=== PATIENT | female | born 1985 | race Caucasian/White ===

== ENCOUNTER 2022-11-28 05:05 | Inpatient (IN) | payer OTHER, SELFPAY ==
[2022-11-28] MEDS ORDERED: Misoprostol 200 MCG TAB PR PRN (05:28)
[2022-11-28] MEDS ORDERED: Carboprost 250 MCG/ML AMP IM PRN (05:28)
[2022-11-28] MEDS ORDERED: Ondansetron PF 4 MG/2 ML Vial IVP PRN ×3 (05:28→12:58)
[2022-11-28] MEDS ORDERED: Promethazine HCl 25 MG/ML VIAL IM PRN ×3 (05:28→12:58)
[2022-11-28] MEDS ORDERED: Tranexamic Acid 1,000 MG/10 ML VIAL IVP PRN (05:28)
[2022-11-28] MEDS ORDERED: hydrALAZINE 20 MG/ML VIAL SLOW IVP PRN ×2 (05:28→12:58)
[2022-11-28] MEDS ORDERED: Methylergonovine 0.2 MG/ML VIAL IM PRN ×2 (05:28→12:58)
[2022-11-28] MEDS ORDERED: NS w/ Oxytocin 30 units 500 ML IV SCH ×2 (05:30→12:58)
[2022-11-28] MEDS ORDERED: Lactated Ringer's 1,000 ML IV SCH (05:30)
[2022-11-28 05:33] VITALS: BMI 27.4
[2022-11-28] MEDS ORDERED: fentaNYL/Ropivacaine Epidural 100 ML ONE (05:41)
[2022-11-28] MEDS ORDERED: Lidocaine 1% (PF) 30 ML VIAL ONE (05:45)
[2022-11-28] MEDS ORDERED: Acetaminophen 325 MG TAB PO PRN (06:13)
[2022-11-28] MEDS ORDERED: Moisturizing Cream (Eucerin) 113 GM JAR TOP PRN (06:13)
[2022-11-28] MEDS ORDERED: Lactated Ringer's 500 ML IV PRN (06:13)
[2022-11-28] MEDS ORDERED: ePHEDrine Sulfate 50 MG/10 ML VIAL SLOW IVP PRN (06:13)
[2022-11-28] MEDS ORDERED: Naloxone HCl 0.4 mg/ml Vial IVP PRN ×2 (06:13)
[2022-11-28] MEDS ORDERED: diphenhydrAMINE 50 MG/ML VIAL IVP PRN (06:13)
[2022-11-28] MEDS ORDERED: Communication Order-Pharmacy FS SCH (06:15)
[2022-11-28] MEDS ORDERED: fentaNYL 2 mcg/Ropivacaine 0.2% Epidural 100 ML CADD EPIDURAL SCH (06:15)
[2022-11-28 06:51] LABS: Hemoglobin 13.3 g/dL (12.0-15.5); Mean Corpuscular HGB CONC 33.6 g/dL (32.0-36.0); Mean Corpuscular Hemoglobin 29.9 pg (27.0-33.0); Mean Platelet Volume 10.2 fl (7.4-10.4); Platelet Count 322 10x3/uL (150-450); RBC Distribution Width 13.5 % (11.5-14.5); Red Blood Cell (RBC) Count 4.45 10x6/uL (3.90-5.03); White Blood Cell (WBC) Count 14.5 10x3/uL (3.5-10.5)
[2022-11-28 07:33] LABS: Syphilis Antibody Nonreactive (Nonreactive); Syphilis Antibody Index 0.05 S/CO (<1.00 Non-Reactive)
[2022-11-28 07:34] LABS: HBSAg Index 0.18 S/CO (0-0.99); Hep B Surf Ag - L&D Non-Reactive S/CO (NonReactive)
[2022-11-28] MEDS ORDERED: Misoprostol 200 MCG TAB ONE (09:20)
[2022-11-28] MEDS ORDERED: Bupivacaine 0.25% HCL 30 ML VIAL ONE (12:00)
[2022-11-28] MEDS ORDERED: HYDROcodone/Acetaminophen 5/325 mg Tablet PO PRN (12:58)
[2022-11-28] MEDS ORDERED: Lanolin Ointment 7 GM TUBE TOP PRN (12:58)
[2022-11-28] MEDS ORDERED: Misoprostol 200 MCG TAB VAG PRN (12:58)
[2022-11-28] MEDS ORDERED: Zolpidem Tartrate 5 MG TAB PO PRN (12:58)
[2022-11-28] MEDS ORDERED: Milk Of Magnesia 30 ML UDCUP PO PRN (12:58)
[2022-11-28] MEDS ORDERED: Preparation H Ointment 28 GM TUBE PR PRN (12:58)
[2022-11-28] MEDS ORDERED: Boostrix 0.5 ML (Tdap) VIAL (>/=7 yrs of age) IM ONE (12:58)
[2022-11-28] MEDS ORDERED: Measles/Mumps/Rubella 10 MCG/0.5 ML VIAL SC ONE (12:58)
[2022-11-28] MEDS ORDERED: diphenhydrAMINE 25 MG CAP PO PRN (12:58)
[2022-11-28] MEDS ORDERED: Bisacodyl 10 MG SUPP PR PRN (12:58)
[2022-11-28] MEDS ORDERED: Varicella virus, LIVE 0.5 ML VIAL SC ONE (12:58)
[2022-11-28] MEDS: Ibuprofen 800 MG TAB PO SCH ×2 (13:50→21:19)
[2022-11-28] MEDS ORDERED: Prenatal Vitamin 1 TAB PO SCH (14:00)
[2022-11-28] MEDS ORDERED: Docusate 100 MG CAP PO SCH (14:00)
[2022-11-28] MEDS: Ferrous Sulfate 325 MG TAB PO SCH (17:01)
[2022-11-28] MEDS: Benzocaine-Menthol 82.5 ML CAN TOP PRN (17:30)
[2022-11-28] MEDS: HYDROcodone/Acetaminophen 5/325 mg Tablet PO PRN (21:19)
[2022-11-28] MEDS: Docusate 100 MG CAP PO SCH (21:19)
[2022-11-29 04:37] LABS: Hemoglobin 10.7 g/dL (12.0-15.5); Red Blood Cell (RBC) Count 3.58 10x6/uL (3.90-5.03); White Blood Cell (WBC) Count 17.8 10x3/uL (3.5-10.5)
[2022-11-29 04:38] LABS: Mean Corpuscular HGB CONC 33.4 g/dL (32.0-36.0); Mean Corpuscular Hemoglobin 29.9 pg (27.0-33.0); Mean Corpuscular Volume 89.4 fl (81.6-98.3); Mean Platelet Volume 10.4 fl (7.4-10.4); Platelet Count 252 10x3/uL (150-450); RBC Distribution Width 13.5 % (11.5-14.5)
[2022-11-29] MEDS: Ibuprofen 800 MG TAB PO SCH (05:36)
[2022-11-29] MEDS: Ferrous Sulfate 325 MG TAB PO SCH (07:20)
[2022-11-29 07:57] VITALS: BP 122/57; TEMP 98
[2022-11-29] MEDS: Docusate 100 MG CAP PO SCH (08:07)
[2022-11-29] MEDS ORDERED: Prenatal Vitamin 1 TAB PO SCH (09:00)
[2022-11-29] MEDS: HYDROcodone/Acetaminophen 5/325 mg Tablet PO PRN (10:07)
[2022-11-29] MEDS: Benzocaine-Menthol 82.5 ML CAN TOP PRN (12:55)
== END 2022-11-29 13:10 | disposition home or self-care (01) | DRG 807 ==
LOC: CSHLD/OP 05:05 → CSHLD 05:28 → CSHPED 12:37
PROVIDERS: ADMIT Obstetrics & Gynecology; ATTEND Obstetrics & Gynecology
PROC: 10E0XZZ Delivery of Products of Conception, External Approach (ICD-10-PCS; principal; 2022-11-28)
PROC: 0KQM0ZZ Repair Perineum Muscle, Open Approach (ICD-10-PCS; 2022-11-28)
DX: O70.1 Second degree perineal laceration during delivery (principal); Z37.0 Single live birth; Z3A.38 38 weeks gestation of pregnancy
CPT/HCPCS: 36415; 51702; 85027; 86780; 86850; 86900; 86901; 87340; 99285; J2001; J2405; J2590; S0020

== ENCOUNTER 2024-06-04 12:58 | Outpatient (CLI) | payer OTHER | END 2024-06-04 12:59 | disposition home or self-care (01) | LOC: CSHMAMMO 12:58 | PROVIDERS: ATTEND Nurse Practitioner Family | DX: Z12.31 Encounter for screening mammogram for malignant neoplasm of breast (principal) | CPT/HCPCS: 77063; 77067 ==